=== PATIENT | male | born 1945 | race Caucasian/White ===

== ENCOUNTER 2017-09-03 15:06 | Inpatient (IN) | payer MEDICARE ==
[~2017-09-03] VITALS: Ht 177.8 cm; Wt 104.3 kg
[2017-09-03 20:01] VITALS: BP 121/89
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
[2017-09-03] MEDS ORDERED: Z GUARD REMEDY 2 OZ OINT TP PRN (20:30)
[2017-09-03] MEDS ORDERED: MAGNESIUM HYDROXIDE 30 ML UDC PO PRN (20:30)
[2017-09-03] MEDS ORDERED: MAG HYDROX/AL HYDROX/SIMETH 30 ML UDC PO PRN (20:30)
[2017-09-03] MEDS ORDERED: HYDROCODONE/APAP 5/325MG 1 EACH TABLET PO PRN (20:30)
[2017-09-03] MEDS ORDERED: ACETAMINOPHEN 325 MG TABLET PO PRN (20:30)
[2017-09-03] MEDS ORDERED: DEXTROSE 50%-WATER 50 ML DISP.SYRIN IV PRN (20:30)
[2017-09-03] MEDS ORDERED: ONDANSETRON HCL/PF 4 MG/2 ML VIAL IVP PRN (20:30)
[2017-09-03] MEDS ORDERED: ZOLPIDEM TARTRATE 5 MG TABLET PO PRN (20:30)
[2017-09-03] MEDS: BLOOD SUGAR DIAGNOSTIC 1 EACH STRIP VI SCH (21:31)
[2017-09-03] MEDS: *INSULIN REGULAR(HUMULIN R)HUM 100 UNIT/ML VIAL SQ PRN (21:39)
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
--- NOTE | 2017-09-03 21:52 | NUR ---
SPOKE WITH DR. PINTO CONCERNING BLOOD SUGAR LEVEL. NO ORDERS.
--- NOTE | 2017-09-03 23:04 | NUR ---
PT FELL ASLEEP WATCHING TV. WILL RECHECK BLOOD SUGAR AT 0200
--- NOTE | 2017-09-04 02:17 | NUR ---
PT SLEEPING. CONTINUE TO MONITOR.
--- NOTE | 2017-09-04 02:28 | NUR ---
REPEAT ACCU CHECK IS 283. CHARGE NURSE INFORMED.
[2017-09-04] MEDS ORDERED: ACET-73 PO (03:50)
[2017-09-04] MEDS ORDERED: CLON0.1T PO (03:50)
[2017-09-04] MEDS ORDERED: INSU100V11 SQ (03:50)
[2017-09-04] MEDS ORDERED: CANA300T PO (03:50)
[2017-09-04] MEDS ORDERED: RIVA10TA PO (03:50)
[2017-09-04] MEDS ORDERED: DIVA250T PO (03:50)
[2017-09-04] MEDS ORDERED: CHOL200026 PO (03:50)
[2017-09-04] MEDS ORDERED: ACET325T53 PO (03:50)
[2017-09-04] MEDS ORDERED: VITA1TAB56 PO (03:50)
[2017-09-04] MEDS ORDERED: DOCU-25 PO (03:50)
[2017-09-04] MEDS ORDERED: BISA10SU8 RC (03:50)
[2017-09-04] MEDS ORDERED: METF10002 PO (03:50)
[2017-09-04] MEDS ORDERED: INSU3INS6 SQ (03:50)
[2017-09-04] MEDS ORDERED: LEVO200T8 PO (03:50)
[2017-09-04] MEDS ORDERED: SITA100T PO (03:50)
[2017-09-04] MEDS ORDERED: OLAN5TAB3 PO (03:50)
--- NOTE | 2017-09-04 04:00 | NUR ---
PT SLEEPING. CONTINUE TO MONITOR.
[2017-09-04 05:16] VITALS: BP 106/62
--- NOTE | 2017-09-04 06:03 | NUR ---
PT RESTING COMFORTABLY. ACCU CHECK 293
[2017-09-04 06:25] LABS: BASOPHILS % (AUTO) 0.4 % (0.0-2.0); CALCIUM, SERUM 9.4 mg/dL (8.5-10.1); CARBON DIOXIDE 27 mmol/L (21-32); CHLORIDE 104 mmol/L (98-107); CREATININE 1.2 mg/dL (0.6-1.3); EOSINOPHILS # (AUTO) 0.1 /CMM (0.0-0.7); EOSINOPHILS % (AUTO) 1.3 % (0.0-6.0); GLUCOSE 280 mg/dL (74-106); HEMATOCRIT 46 % (39-51); HEMOGLOBIN 15.7 g/dL (13.5-17.5); LYMPHOCYTES % (AUTO) 25.6 % (20.0-44.0); MAGNESIUM 2.1 mg/dL (1.8-2.4); MEAN CORPUSCULAR HEMOGLOBIN 31 PG (26.0-33.0); MEAN CORPUSCULAR HGB CONC 34 g/dl (31.0-36.0); MEAN CORPUSCULAR VOLUME 91 fL (80-96); MONOCYTES # (AUTO) 0.7 /CMM (0.1-1.30); MONOCYTES % (AUTO) 9.2 % (2.0-12.0); NEUTROPHILS % (AUTO) 63.5 % (43.0-81.0); PHOSPHORUS 3.8 mg/dL (2.5-4.9); PLATELET COUNT (AUTO) 263 /CMM (150-450); POTASSIUM 4.1 mmol/L (3.5-5.1); RDW COEFFICIENT OF VARIATION 13.7 (11.5-15.0); RED BLOOD CELL COUNT(AUTO) 5.08 MIL/uL (4.5-6.0); SODIUM SERUM 139 mmol/L (136-145); UREA NITROGEN, BLOOD 17 mg/dL (7-18); WHITE BLOOD COUNT (AUTO) 7.8 K/uL (4.3-11.0)
[2017-09-04] MEDS: BLOOD SUGAR DIAGNOSTIC 1 EACH STRIP VI SCH ×4 (07:30→22:17)
[2017-09-04 08:00] VITALS: BP 118/73
[2017-09-04] MEDS: *INSULIN REGULAR(HUMULIN R)HUM 100 UNIT/ML VIAL SQ PRN ×2 (10:26→22:27)
[2017-09-04] MEDS: INSULIN REGULAR, HUMAN 100 UNIT/ML 3 ML VIAL SQ PRN ×2 (12:04→17:41)
--- NOTE | 2017-09-04 12:15 | NUR ---
DR STRANGE HERE AT BEDSIDE, NOTIFIED BS IN 409, 15 UNITS GIVEN. HALF-WAY MEDICATIONS REORDERED.
[2017-09-04] MEDS ORDERED: CLONIDINE HCL 0.1 MG TABLET PO PRN (12:30)
[2017-09-04] MEDS ORDERED: BISACODYL SUPP (10 MG) 10 MG/SUPP.RECT SUPP.RECT RC PRN (12:30)
--- NOTE | 2017-09-04 12:39 | NUR ---
PHARMACY NOTIFIED TO RESCHEDULE FUNES MEDS FOR TODAY INSTEAD OF TOMORROW.
--- NOTE | 2017-09-04 13:27 | NUR ---
BS RE-CHECKED, BS 401, WILL NOTIFY DR STRANGE. ACCORDING TO NURSING INTELLIGENCE INTERN PT MUST GO TO THE FLOOR NOW. REPORT GIVEN TO FARHAN. PT BY JACQUI TRANSFERRED TO ROOM 327-1
[2017-09-04] MEDS: CHOLECALCIFEROL 1,000 UNIT TABLET (VIT D3) PO SCH (13:48)
[2017-09-04] MEDS: OLANZAPINE 5 MG TABLET PO SCH (13:48)
[2017-09-04] MEDS: LINAGLIPTIN 5 MG TABLET PO SCH (13:48)
[2017-09-04] MEDS: METFORMIN 500 MG TABLET PO SCH (13:48)
[2017-09-04] MEDS: VITAMIN B COMP W-C 1 TAB TABLET PO SCH (13:48)
[2017-09-04] MEDS: LEVOTHYROXINE SODIUM 100 MCG TABLET PO SCH (13:48)
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
[2017-09-04 16:00] VITALS: BP 97/60
[2017-09-04] MEDS ORDERED: DEPAKOTE 125 MG PO SCH (17:00)
[2017-09-04] MEDS: DOCUSATE SODIUM 100 MG CAPSULE PO SCH (17:40)
[2017-09-04] MEDS: RIVAROXABAN 10 MG TABLET PO SCH (17:40)
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
--- NOTE | 2017-09-04 19:30 | NUR ---
RN NOTES RECEIVED PT. SLEEPING BUT AROUSABLE, A/OX3,DENIES PAIN, NO SOB, NO IV ACCESS- MD IS AWARE, CLL LIGHT WITHIN REACH, SIDERAILS UPX2, CONTINUE TO MONITOR
[2017-09-04 20:00] VITALS: BP 103/69
[2017-09-04] MEDS: DIVALPROEX SODIUM 125 MG TABLET.DR PO SCH (22:17)
[2017-09-04] MEDS: INSULIN DETEMIR 100 UNIT/ML CARTRIDGE SQ SCH (22:25)
[2017-09-05] MEDS: BLOOD SUGAR DIAGNOSTIC 1 EACH STRIP VI SCH ×4 (06:08→21:42)
[2017-09-05] MEDS: INSULIN REGULAR, HUMAN 100 UNIT/ML 3 ML VIAL SQ PRN ×2 (06:37→11:12)
--- NOTE | 2017-09-05 07:00 | NUR ---
RN NOTES AWAKE, DENIES PAIN, NO SOB, MORNING CARE RENDERED, PT. NEEDS ATTENDED
[2017-09-05] MEDS ORDERED: INVOKANA 300 MG PO SCH (07:30)
[2017-09-05] MEDS ORDERED: LEVOTHYROXINE SODIUM 100 MCG TABLET PO SCH (07:30)
[2017-09-05 08:00] VITALS: BP 101/55
[2017-09-05] MEDS: LEVOTHYROXINE SODIUM 100 MCG TABLET PO SCH (08:01)
[2017-09-05] MEDS: OLANZAPINE 5 MG TABLET PO SCH (08:47)
[2017-09-05] MEDS: DOCUSATE SODIUM 100 MG CAPSULE PO SCH ×2 (08:47→18:06)
[2017-09-05] MEDS: METFORMIN 500 MG TABLET PO SCH (08:47)
[2017-09-05] MEDS: CHOLECALCIFEROL 1,000 UNIT TABLET (VIT D3) PO SCH (08:47)
[2017-09-05] MEDS: LINAGLIPTIN 5 MG TABLET PO SCH (08:47)
[2017-09-05] MEDS: VITAMIN B COMP W-C 1 TAB TABLET PO SCH (08:47)
[2017-09-05] MEDS: DIVALPROEX SODIUM 125 MG TABLET.DR PO SCH ×2 (08:47→21:42)
[2017-09-05] MEDS ORDERED: OLANZAPINE 5 MG TABLET PO SCH (09:00)
[2017-09-05] MEDS ORDERED: CHOLECALCIFEROL 1,000 UNIT TABLET (VIT D3) PO SCH (09:00)
[2017-09-05] MEDS ORDERED: LINAGLIPTIN 5 MG TABLET PO SCH (09:00)
[2017-09-05] MEDS ORDERED: METFORMIN 500 MG TABLET PO SCH (09:00)
[2017-09-05] MEDS ORDERED: VITAMIN B COMP W-C 1 TAB TABLET PO SCH (09:00)
[2017-09-05] MEDS ORDERED: Medication Not On Formulary EA (Sitagliptin Phosphate (Januvia) 100 MG) PO SCH (09:00)
[2017-09-05 16:00] VITALS: BP 94/52
[2017-09-05] MEDS: RIVAROXABAN 10 MG TABLET PO SCH (18:06)
--- NOTE | 2017-09-05 19:30 | NUR ---
RN NOTES RECEIVED PT. AWAKE ON BED, A/OX3, NO IV ACCESS-MD AWARE, DENIES PAIN, NO SOB, CALL LIGHT WITHIN REACH, SIDERAILS UPW CONTINUE TO MONITOR
--- NOTE | 2017-09-05 19:32 | NUR ---
Handoff report to night nurse.
[2017-09-05 20:00] VITALS: BP 116/70
[2017-09-05 20:17] VITALS: BP_SYST 114; BP_SYST 116; BP_DIAS 60; BP_DIAS 70
[2017-09-05] MEDS: INSULIN DETEMIR 100 UNIT/ML CARTRIDGE SQ SCH (21:43)
[2017-09-05] MEDS: *INSULIN REGULAR(HUMULIN R)HUM 100 UNIT/ML VIAL SQ PRN (21:45)
--- NOTE | 2017-09-06 06:46 | NUR ---
RN NOTES AWAKE, DENIES PAIN, NO SOB, MORNING CARE RENDERED, CALL LIGHT WITHIN REACH, SIDERIALS UPX2 PT. NEEDS ATTENDED
[2017-09-06] MEDS: INSULIN REGULAR, HUMAN 100 UNIT/ML 3 ML VIAL SQ PRN ×3 (06:51→16:32)
[2017-09-06] MEDS: BLOOD SUGAR DIAGNOSTIC 1 EACH STRIP VI SCH ×3 (07:30→16:45)
[2017-09-06] MEDS: LEVOTHYROXINE SODIUM 100 MCG TABLET PO SCH (07:30)
[2017-09-06 08:00] VITALS: BP 104/69
[2017-09-06] MEDS: VITAMIN B COMP W-C 1 TAB TABLET PO SCH (08:48)
[2017-09-06] MEDS: METFORMIN 500 MG TABLET PO SCH (08:48)
[2017-09-06] MEDS: LINAGLIPTIN 5 MG TABLET PO SCH (08:48)
[2017-09-06] MEDS: DIVALPROEX SODIUM 125 MG TABLET.DR PO SCH (08:48)
[2017-09-06] MEDS: CHOLECALCIFEROL 1,000 UNIT TABLET (VIT D3) PO SCH (08:48)
[2017-09-06] MEDS: DOCUSATE SODIUM 100 MG CAPSULE PO SCH ×2 (08:48→16:44)
[2017-09-06] MEDS: OLANZAPINE 5 MG TABLET PO SCH (08:48)
[2017-09-06 16:00] VITALS: BP 100/69
[2017-09-06] MEDS: RIVAROXABAN 10 MG TABLET PO SCH (16:44)
--- NOTE | 2017-09-06 17:20 | NUR ---
Discharge of the stable patient via ambulance to [facility] 104. Ambulance crew members and accepting nurse given report.
== END 2017-09-06 16:45 | DRG 918 ==
LOC: ER 15:07 → EDBD 15:07 → TRANSITION 17:42 → MED 09-04 13:43
PROVIDERS: ADMIT Internal Medicine; ATTEND Internal Medicine
DX: T59.811A Toxic effect of smoke, accidental (unintentional), initial encounter (principal); E44.0 Moderate protein-calorie malnutrition; I48.91 Unspecified atrial fibrillation; R06.03 Acute respiratory distress; J70.5 Respiratory conditions due to smoke inhalation; E11.9 Type 2 diabetes mellitus without complications; E03.9 Hypothyroidism, unspecified; E66.9 Obesity, unspecified; F03.90 Unspecified dementia, unspecified severity, without behavioral disturbance, psychotic disturbance, mood disturbance, and anxiety; F31.9 Bipolar disorder, unspecified; I10 Essential (primary) hypertension; Z79.84 Long term (current) use of oral hypoglycemic drugs; Y92.129 Unspecified place in nursing home as the place of occurrence of the external cause; Z68.33 Body mass index [BMI] 33.0-33.9, adult; Z79.01 Long term (current) use of anticoagulants
CPT/HCPCS: 36415; 80048-TC; 82962-TC; 83735-TC; 84100-TC; 85025-TC; 87081-TC; A4606; J1815; J2405; Z7610

== ENCOUNTER 2019-09-07 13:33 | Inpatient (IN) | payer MEDICARE, MEDICAID ==
[~2019-09-07] VITALS: Ht 180.3 cm; Wt 77.1 kg
[~2019-09-07 13:33] MED LIST: ACET-73 PO; ACET325T53 PO; BISA10SU8 RC; CANA300T PO; CHOL200026 PO; CLON0.1T PO; DIVA250T PO; DOCU-141 PO; INSU100V11 SQ; INSU3INS6 SQ; LEVO200T8 PO; METF-442 PO; OLAN5TAB3 PO; RIVA10TA PO; SITA100T PO; VITA1TAB56 PO
--- NOTE | 2019-09-07 13:52 | NUR ---
KALINA FROM [facility] C/O GEN WEAKNESS AND UNABLE TO EAT FOR 1 WEEK. ALERT AND ORIENTED X1 WITH EPISODES OF CONFUSION. BREATHING EVEN AND UNLABORED WITH NO DISTRESS NOTED. SKIN INTACT. AWAITING TO BE SEEN BY MD.
[2019-09-07 13:54] LABS: BASOPHILS # (AUTO) 0.1 /CMM (0.0-0.2); BASOPHILS % (AUTO) 0.4 % (0.0-2.0); HEMATOCRIT 50 % (39-51); HEMOGLOBIN 15.7 g/dL (13.5-17.5); LYMPHOCYTES % (AUTO) 5.9 % (20.0-44.0); MEAN CORPUSCULAR HGB CONC 32 g/dl (31.0-36.0); MEAN CORPUSCULAR VOLUME 92 fL (80-96); MONOCYTES # (AUTO) 0.8 /CMM (0.1-1.30); MONOCYTES % (AUTO) 4.8 % (2.0-12.0); NEUTROPHILS # (AUTO) 15.2 /CMM (1.8-8.9); NEUTROPHILS % (AUTO) 88.9 % (43.0-81.0); PLATELET COUNT (AUTO) 416 /CMM (150-450); RED BLOOD CELL COUNT(AUTO) 5.39 MIL/uL (4.5-6.0); WHITE BLOOD COUNT (AUTO) 17.2 K/uL (4.3-11.0)
[2019-09-07] MEDS ORDERED: IV NS 0.9% 500 ML BAG IV ONE (14:00)
--- NOTE | 2019-09-07 14:01 | NUR ---
URINE COLLECTED SENT TO LAB
[2019-09-07 14:03] LABS: CALCIUM, SERUM 10.5 mg/dL (8.5-10.1); CARBON DIOXIDE 23 mmol/L (21-32); CHLORIDE 111 mmol/L (98-107); CREATININE 2.4 mg/dL (0.6-1.3); GLUCOSE 329 mg/dL (74-106); POTASSIUM 4.7 mmol/L (3.5-5.1); SODIUM SERUM 150 mmol/L (136-145); UREA NITROGEN, BLOOD 68 mg/dL (7-18)
[2019-09-07 14:05] LABS: APPEARANCE,URINE Slightly Cloudy (CLEAR); BILIRUBIN,URINE Negative (NEGATIVE); BLOOD, URINE Moderate Ery/uL (NEGATIVE); COLOR,URINE Yellow (YELLOW); KETONES,URINE Negative (NEGATIVE); LEUKOCYTE ESTERASE ,URINE Small (NEGATIVE); NITRITE, URINE Positive (NEGATIVE); PH,URINE 5.5 (5.0-8.0); PROTEIN,URINE 100 mg/dl (NEGATIVE); UGLUCOSE 500 MG/DL mg/dL (NEGATIVE); UROBILINOGEN,URINE 0.2 EU/dL (0.2)
--- NOTE | 2019-09-07 14:08 | NUR ---
KNOWLEDGE ENGINEER AT BEDSIDE
[2019-09-07 14:09] LABS: ALANINE AMINOTRANSFERASE 29 U/L (12-78); ALBUMIN 2.9 g/dL (3.4-5.0); ALKALINE PHOSPHATASE 110 U/L (46-116); ASPARTATE AMINOTRANSFERASE 17 U/L (15-37); BILIRUBIN,DIRECT 0.1 mg/dL (0.0-0.2); BILIRUBIN,TOTAL 0.6 mg/dL (0.2-1.0)
[2019-09-07] MEDS ORDERED: LACT1TAB25 PO (14:14)
[2019-09-07] MEDS ORDERED: PSYL283P40 PO (14:14)
[2019-09-07] MEDS ORDERED: ACET325T53 PO (14:14)
[2019-09-07 14:18] LABS: BACTERIA,URINE Moderate /HPF (None Seen); SQUAMOUS EPITHELIAL CELL,UR Few /HPF (None Seen); WBC,URINE 80-100 /HPF (0-3)
[2019-09-07] MEDS ORDERED: CRAN425C6 PO (14:18)
[2019-09-07] MEDS ORDERED: MULT-439 PO (14:18)
[2019-09-07] MEDS ORDERED: IV NS 0.9% 1,000 ML BAG IV ONE (14:30)
[2019-09-07] MEDS ORDERED: PIPERACILLIN /TAZOBACTAM 3.375 G in IV D5W 50 ML IV ONE (14:30)
[2019-09-07] MEDS ORDERED: LEVOFLOXACIN 750 MG /D5W 150ML 150 ML IV ONE (14:30)
--- NOTE | 2019-09-07 14:42 | NUR ---
[facility] PAGED
--- NOTE | 2019-09-07 15:43 | NUR ---
CALLED NURSING SUP FOR TELE BED
--- NOTE | 2019-09-07 15:50 | NUR ---
LORAINE HERRERA AT BEDSIDE FOR EVAL.
[2019-09-07 16:00] VITALS: BP 109/69
--- NOTE | 2019-09-07 16:03 | NUR ---
GOT TELE BED 106
[2019-09-07] MEDS ORDERED: BISACODYL SUPP (10 MG) 10 MG/SUPP.RECT SUPP.RECT RC PRN (16:30)
[2019-09-07] MEDS ORDERED: ACETAMINOPHEN 325 MG TABLET PO PRN (16:30)
[2019-09-07] MEDS ORDERED: Z GUARD REMEDY 2 OZ OINT TP PRN (16:30)
[2019-09-07] MEDS ORDERED: MAGNESIUM HYDROXIDE 30 ML UDC PO PRN (16:30)
[2019-09-07] MEDS ORDERED: ONDANSETRON HCL/PF 4 MG/2 ML VIAL IVP PRN (16:30)
[2019-09-07] MEDS ORDERED: MAG HYDROX/AL HYDROX/SIMETH 30 ML UDC PO PRN (16:30)
[2019-09-07] MEDS ORDERED: ZOLPIDEM TARTRATE 5 MG TABLET PO PRN (16:30)
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
--- NOTE | 2019-09-07 16:44 | NUR ---
REPORT GIVEN TO ESSIE
[2019-09-07] MEDS ORDERED: INSULIN REGULAR, HUMAN 100 UNIT/ML 3 ML VIAL SQ PRN (17:00)
[2019-09-07] MEDS ORDERED: DEXTROSE 50%-WATER 50 ML DISP.SYRIN IV PRN (17:00)
[2019-09-07] MEDS: CHOLECALCIFEROL 1,000 UNIT TABLET (VIT D3) PO SCH (18:22)
[2019-09-07] MEDS: DOCUSATE SODIUM 100 MG CAPSULE PO SCH (18:22)
[2019-09-07] MEDS: LACTOBACILLUS RHAMNOSUS GG 1 EACH CAP.SPRINK PO SCH (18:22)
[2019-09-07] MEDS: RIVAROXABAN 15 MG TABLET PO SCH (18:24)
[2019-09-07] MEDS: BLOOD SUGAR DIAGNOSTIC 1 EACH STRIP IN SCH ×2 (18:28→22:56)
[2019-09-07] MEDS: IV 1/2NS 1000 ML 1,000 ML IV PRN (19:05)
--- NOTE | 2019-09-07 19:14 | NUR ---
PT AWAKE, ALERT, ABLE TO FOLLOW COMMANDS, OPENS EYES SPONTANEOUSLY TO SPEECH AND TOUCH, NON VERBAL MOST OF THE TIME- SOMETIMES ABLE TO ANSWER YES OR NO QUESTIONS. ON ROOM AIR, SATURATING WELL, RESPIRATIONS EVEN AND UNLABORED, NO SIGNS OF RESPIRATORY DISTRESS NOTED. IV SITE ON LEFT AC G20 INTACT, PATENT, 0.45% NS INFUSING AT 100CC/HR, NO SIGNS OF INFILTRATION NOTED. BED IN LOW POSITION, LOCKED, CALL LIGHT WITHIN REACH. WILL ENDORSE TO NOC SHIFT NURSE.
--- NOTE | 2019-09-07 19:30 | NUR ---
CUSHION COVER INSPECTOR OPENING NOTE RECEIVED PATIENT IN BED. PATIENT IS NOVERBAL BUT ALERT. TOLERATING ROOM AIR. RESPIRATIONS ARE EVEN AND UNLABORED. NO S/S SOB NOTED. NO MANIFESTATION OF PAIN. EXTERNAL TELE MONITOR READS SR - ST HR IN 90S. IN NO APPARENT DISTRESS. IV ACCESS IN LAC RUNNING 1/2NS@100ML/HR. BED IS LOW AND LOCKED, HOB ELEVATED SEMI FOWLERS, SIDE RIALS UP X2, BED ALARM ON. CALL LIGHT WITHIN REACH WILL CONTINUE TO MONITOR
[2019-09-07 20:00] VITALS: BP 119/77
[2019-09-07] MEDS: INSULIN GLARGINE, 100 UNIT/ML CARTRIDGE SQ SCH (22:00)
[2019-09-07] MEDS: DIVALPROEX SODIUM 125 MG TABLET.DR PO SCH (22:40)
[2019-09-07] MEDS ORDERED: PIPERACILLIN /TAZOBACTAM 3.375 G in IV D5W 50 ML IV SCH (23:00)
[2019-09-07] MEDS: PIPERACILLIN /TAZOBACTAM 3.375 G in IV D5W 100 ML IV SCH (23:40)
[2019-09-08] VITALS: BP 117/77
[2019-09-08] MEDS ORDERED: DEXTROSE 50%-WATER 50 ML DISP.SYRIN IV PRN
[2019-09-08] MEDS: BLOOD SUGAR DIAGNOSTIC 1 EACH STRIP IN SCH ×6 (00:51→20:54)
[2019-09-08] MEDS: INSULIN REGULAR, HUMAN 100 UNIT/ML 3 ML VIAL SQ PRN ×6 (00:56→20:57)
[2019-09-08 01:38] VITALS: BP 117/77
[2019-09-08 04:00] VITALS: BP 115/73
[2019-09-08 06:15] LABS: BASOPHILS # (AUTO) 0.1 /CMM (0.0-0.2); BASOPHILS % (AUTO) 0.5 % (0.0-2.0); EOSINOPHILS % (AUTO) 0.5 % (0.0-6.0); HEMATOCRIT 43 % (39-51); HEMOGLOBIN 13.7 g/dL (13.5-17.5); LYMPHOCYTES # (AUTO) 1.3 /CMM (0.8-4.8); LYMPHOCYTES % (AUTO) 8.6 % (20.0-44.0); MEAN CORPUSCULAR HGB CONC 32 g/dl (31.0-36.0); MEAN CORPUSCULAR VOLUME 91 fL (80-96); MONOCYTES # (AUTO) 1.1 /CMM (0.1-1.30); MONOCYTES % (AUTO) 7.6 % (2.0-12.0); NEUTROPHILS # (AUTO) 12.4 /CMM (1.8-8.9); NEUTROPHILS % (AUTO) 82.8 % (43.0-81.0); PLATELET COUNT (AUTO) 336 /CMM (150-450)
[2019-09-08 06:42] LABS: ALANINE AMINOTRANSFERASE 19 U/L (12-78); ALBUMIN 2.3 g/dL (3.4-5.0); ALKALINE PHOSPHATASE 91 U/L (46-116); ASPARTATE AMINOTRANSFERASE 13 U/L (15-37); BILIRUBIN,DIRECT 0.1 mg/dL (0.0-0.2); BILIRUBIN,TOTAL 0.6 mg/dL (0.2-1.0); CALCIUM, SERUM 9.4 mg/dL (8.5-10.1); CARBON DIOXIDE 21 mmol/L (21-32); CHLORIDE 118 mmol/L (98-107); CREATININE 1.9 mg/dL (0.6-1.3); GLUCOSE 232 mg/dL (74-106); MAGNESIUM 2.6 mg/dL (1.8-2.4); PHOSPHORUS 3.7 mg/dL (2.5-4.9); POTASSIUM 3.9 mmol/L (3.5-5.1); SODIUM SERUM 155 mmol/L (136-145); TOTAL PROTEIN, SERUM 7.6 g/dL (6.4-8.2); UREA NITROGEN, BLOOD 62 mg/dL (7-18)
[2019-09-08 06:54] LABS: CHOLESTEROL 101 mg/dL (<200); HDL CHOLESTEROL 26 mg/dL (40-60); LDL 62 mg/dL (0-99); THYROID STIMULATING HORMONE 0.335 uIU/mL (0.358-3.74); TRIGLYCERIDES 88 mg/dL (30-150)
--- NOTE | 2019-09-08 07:00 | NUR ---
FLORIST CLOSING NOTE NO SIGNIFICANT CHANGES THROUGHOUT SHIFT. WILL ENDORSE TO NEXT SHIFT.
[2019-09-08] MEDS: PIPERACILLIN /TAZOBACTAM 3.375 G in IV D5W 100 ML IV SCH ×3 (07:12→23:58)
--- NOTE | 2019-09-08 07:25 | NUR ---
CONSULTING NURSE OPENING NOTE RECEIVED REPORT FROM PM NURSE.PATIENT IN BED. AXOX1.ABLE TO TELL NAME AND ANSWER SIMPLE QUESTIONS. ON ROOM AIR. RESPIRATIONS ARE EVEN AND UNLABORED. NO S/S SOB NOTED. NO C/O PAIN. ON TELE MONITOR SR HR 89. IN NO APPARENT DISTRESS. IV ACCESS IN LAC RUNNING 1/2NS@100ML/HR. BED IS LOW AND LOCKED POSITION. HOB ELEVATED SEMI FOWLERS POSITION.SIDE RIALS UP X3. BED ALARM ON. CALL LIGHT WITHIN REACH WILL CONTINUE TO MONITOR
[2019-09-08 08:00] VITALS: BP 109/27
[2019-09-08] MEDS: LACTOBACILLUS RHAMNOSUS GG 1 EACH CAP.SPRINK PO SCH (08:37)
[2019-09-08] MEDS: LEVOTHYROXINE SODIUM 125 MCG TABLET PO SCH (08:37)
[2019-09-08] MEDS: OLANZAPINE 5 MG TABLET PO SCH (08:37)
[2019-09-08] MEDS: MULTIVIT W/MINERALS 1 TAB TABLET PO SCH (08:37)
[2019-09-08] MEDS: VIT B CMPLX 3/FA/VIT C/BIOTIN 1 TAB TABLET PO SCH (08:37)
[2019-09-08] MEDS: CHOLECALCIFEROL 1,000 UNIT TABLET (VIT D3) PO SCH (08:37)
[2019-09-08] MEDS: DOCUSATE SODIUM 100 MG CAPSULE PO SCH ×2 (08:37→16:43)
[2019-09-08] MEDS: PSYLLIUM SEED 1 PKT PACKET PO SCH ×2 (08:37→16:44)
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
[2019-09-08] MEDS ORDERED: CRANBERRY EXTRACT 650 MG PO SCH (09:00)
--- NOTE | 2019-09-08 11:00 | NUR ---
MS RN NOTE SEEN BY SPEECH THERAPIST.GOT NEW ORDERS.WILL CONTINUE TO MONITOR.
--- NOTE | 2019-09-08 12:00 | NUR ---
RN NOTES RECEIVED TRANSFER REPORT FROM [facility] [address] FOR CONTINUITY OF CARE.
--- NOTE | 2019-09-08 12:12 | NUR ---
RN NOTE ENDORSED TO DARRON MARTINEZ FOR ALAN.PLACED CONDOM CATH FOR WOUND CARE.
[2019-09-08 15:37] LABS: CREATININE, URINE 51.6 MG/DL (30.0-125.0); URINE TOTAL PROTEIN 39.2 mg/dL (0-11.9)
[2019-09-08 16:00] VITALS: BP 125/79
[2019-09-08 16:06] LABS: APPEARANCE,URINE SL CLOUDY (CLEAR); BILIRUBIN,URINE NEGATIVE (NEGATIVE); BLOOD, URINE MODERATE Ery/uL (NEGATIVE); COLOR,URINE YELLOW (YELLOW); KETONES,URINE NEGATIVE (NEGATIVE); LEUKOCYTE ESTERASE ,URINE SMALL (NEGATIVE); NITRITE, URINE NEGATIVE (NEGATIVE); PH,URINE 5.5 (5.0-8.0); PROTEIN,URINE NEGATIVE (NEGATIVE); UGLUCOSE >=1000 mg/dL (NEGATIVE); UROBILINOGEN,URINE 0.2 EU/dL (0.2)
[2019-09-08 16:12] LABS: BACTERIA,URINE 1+ /HPF (None Seen); SQUAMOUS EPITHELIAL CELL,UR Few /HPF (None Seen); WBC,URINE TOO NUMEROUS TO COUN /HPF (0-3)
[2019-09-08] MEDS: RIVAROXABAN 15 MG TABLET PO SCH (16:44)
[2019-09-08 16:57] LABS: EOSINOPHIL,URINE Rare
[2019-09-08] MEDS: CLOTRIMAZOLE 1% 15 GM TUBE TP SCH (17:09)
[2019-09-08] MEDS: CLOTRIMAZOLE/BETAMETASONE DIPROPIONATE 15 GM TUBE TP SCH (17:09)
--- NOTE | 2019-09-08 19:31 | NUR ---
RN CLOSING NOTES PATIENT IS RESTING IN BED COMFORTABLY AT THIS TIME, DENIES ANY DISTRESS, PAIN, OR SOB. PT WAS SEEN BY THE WOUND CARE TEAM TODAY. PT NEEDS HAVE BEEN MET, VITAL SIGNS ARE STABLE, NO ACUTE CHANGES OCCURRED THROUGHOUT THE SHIFT. SAFETY MEASURES HAVE BEEN IMPLEMENTED, CALL LIGHT IS WITHIN REACH, BED IS IN LOWEST AND LOCKED POSITION, SIDE RAILS UP X2, PT HAS BEEN ENDORSED TO NIGHTSHIFT RN FOR CONTINUITY OF CARE.
--- NOTE | 2019-09-08 19:35 | NUR ---
RN NOTES, PATIENT SLEEPING AT THIS TIME BUT EASILY AROUSES TO TACTILE STIMULI, AT RA BREATHING EVEN AND UNLABORED, NO SOB/ACUTE DISTRESS NOTED AT THIS TIME, DENIES ANY PAIN OR DISCOMFORT, DENIES ANY DISTRESS, ALL SAFETY MEASURES IN PLACED, LEFT AC IV ACCESS IN PLACED, PATENT AND INTACT, AND IVF INFUSING ORDERED, PATIENT TOLERATED WELL, CALL LIGHT IS WITHIN REACH, BED IS IN LOWEST AND LOCKED POSITION, SIDE RAILS UP X2,WILL CONTINUE TO MONITOR CLOSELY.
[2019-09-08 20:00] VITALS: BP_SYST 109; BP_SYST 128; BP_DIAS 68; BP_DIAS 70
[2019-09-08] MEDS: INSULIN GLARGINE, 100 UNIT/ML CARTRIDGE SQ SCH (21:09)
[2019-09-08] MEDS: DIVALPROEX SODIUM 125 MG TABLET.DR PO SCH (21:09)
[2019-09-09] MEDS: IV 1/2NS 1000 ML 1,000 ML IV PRN (00:04)
[2019-09-09] MEDS: INSULIN REGULAR, HUMAN 100 UNIT/ML 3 ML VIAL SQ PRN ×6 (00:56→21:47)
[2019-09-09] MEDS: BLOOD SUGAR DIAGNOSTIC 1 EACH STRIP IN SCH ×6 (00:56→21:44)
[2019-09-09 04:00] VITALS: BP 112/72
[2019-09-09 06:34] LABS: BASOPHILS # (AUTO) 0.1 /CMM (0.0-0.2); BASOPHILS % (AUTO) 1.1 % (0.0-2.0); EOSINOPHILS % (AUTO) 2.7 % (0.0-6.0); HEMATOCRIT 41 % (39-51); LYMPHOCYTES # (AUTO) 1.7 /CMM (0.8-4.8); LYMPHOCYTES % (AUTO) 12.6 % (20.0-44.0); MEAN CORPUSCULAR HGB CONC 32 g/dl (31.0-36.0); MEAN CORPUSCULAR VOLUME 92 fL (80-96); MONOCYTES # (AUTO) 1.2 /CMM (0.1-1.30); MONOCYTES % (AUTO) 8.4 % (2.0-12.0); NEUTROPHILS # (AUTO) 10.4 /CMM (1.8-8.9); NEUTROPHILS % (AUTO) 75.2 % (43.0-81.0); PLATELET COUNT (AUTO) 338 /CMM (150-450); RED BLOOD CELL COUNT(AUTO) 4.44 MIL/uL (4.5-6.0); WHITE BLOOD COUNT (AUTO) 13.8 K/uL (4.3-11.0)
[2019-09-09 06:40] LABS: ALANINE AMINOTRANSFERASE 18 U/L (12-78); ALBUMIN 2.3 g/dL (3.4-5.0); ALKALINE PHOSPHATASE 86 U/L (46-116); ASPARTATE AMINOTRANSFERASE 6 U/L (15-37); BILIRUBIN,TOTAL 0.3 mg/dL (0.2-1.0); CALCIUM, SERUM 9.3 mg/dL (8.5-10.1); CARBON DIOXIDE 27 mmol/L (21-32); CHLORIDE 123 mmol/L (98-107); CREATININE 1.9 mg/dL (0.6-1.3); GLUCOSE 85 mg/dL (74-106); MAGNESIUM 2.7 mg/dL (1.8-2.4); PHOSPHORUS 3.4 mg/dL (2.5-4.9); POTASSIUM 3.5 mmol/L (3.5-5.1); TOTAL PROTEIN, SERUM 7.4 g/dL (6.4-8.2); UREA NITROGEN, BLOOD 50 mg/dL (7-18)
[2019-09-09 06:47] LABS: CREATINE KINASE, TOTAL 12 U/L (39-308); THYROID STIMULATING HORMONE 0.404 uIU/mL (0.358-3.74)
--- NOTE | 2019-09-09 06:53 | NUR ---
RN NOTES, PATIENT AWAKE AT THIS TIME, ON RA BREATHING EVEN AND UNLABORED, NO S/S OF SOB/ACUTE DISTRESS NOTED AT THIS TIME, NO SIGNIFICANT CHANGE IN CONDITION DURING THE NIGHT, ALL NEEDS PROVIDED, AND MEDS ADMINISTERED ORDERED, BED LOCKED AND IN LOWEST POSITION, CALL LIGHT WITHIN REACH, DRY AND CLEAN AND WELL REPOSITIONED, WILL ENDORSE CONTINUITY OF CARE TO ONCOMING NURSE.
[2019-09-09 07:42] LABS: SODIUM SERUM 158 mmol/L (136-145)
[2019-09-09] MEDS: PIPERACILLIN /TAZOBACTAM 3.375 G in IV D5W 100 ML IV SCH ×2 (07:47→14:46)
[2019-09-09] MEDS: LEVOTHYROXINE SODIUM 125 MCG TABLET PO SCH (07:48)
[2019-09-09 08:00] VITALS: BP 120/60
--- NOTE | 2019-09-09 08:05 | NUR ---
MS RN OPENING NOTE PATIENT IN BED RESTING COMFORTABLY. PATIENT IN NO ACUTE DISTRESS. NO SOB NOTED. PATIENT BREATHING IS EVEN AND UNLABORED. NO FACIAL GRIMACING NOTED. IV INTACT. PATIENT HOB IS ELEVATED. PATIENT BED IS LOCKED AND IN LOWEST POSITION. CALL LIGHT WITHIN REACH. WILL CONTINUE TO MONITOR.
--- NOTE | 2019-09-09 08:20 | NUR ---
MS RN NOTE NOTIFIED DYLLAN PLEITEZ OF [facility] LAB VALUE OF SODIUM 158. PER DYLLAN TO CHANGE IV FLUIDS TO D5W. WILL CONTINUE TO MONITOR.
[2019-09-09] MEDS: CLOTRIMAZOLE/BETAMETASONE DIPROPIONATE 15 GM TUBE TP SCH ×2 (09:20→16:38)
[2019-09-09] MEDS: OLANZAPINE 5 MG TABLET PO SCH (09:21)
[2019-09-09] MEDS: PSYLLIUM SEED 1 PKT PACKET PO SCH ×2 (09:21→16:36)
[2019-09-09] MEDS: VIT B CMPLX 3/FA/VIT C/BIOTIN 1 TAB TABLET PO SCH (09:21)
[2019-09-09] MEDS: CHOLECALCIFEROL 1,000 UNIT TABLET (VIT D3) PO SCH (09:21)
[2019-09-09] MEDS: CLOTRIMAZOLE 1% 15 GM TUBE TP SCH ×2 (09:21→16:38)
[2019-09-09] MEDS: DOCUSATE SODIUM 100 MG CAPSULE PO SCH ×2 (09:22→16:36)
[2019-09-09] MEDS: LACTOBACILLUS RHAMNOSUS GG 1 EACH CAP.SPRINK PO SCH (09:22)
[2019-09-09] MEDS: MULTIVIT W/MINERALS 1 TAB TABLET PO SCH (09:22)
[2019-09-09 12:00] VITALS: BP 115/64
--- NOTE | 2019-09-09 12:40 | NUR ---
MS RN NOTE CALL FROM LAB REPORTING GRAM POSITIVE COCCI. WILL CONTINUE TO MONITOR.
[2019-09-09] MEDS: IV D5W 1,000 ML IV PRN (14:44)
[2019-09-09 16:00] VITALS: BP 101/65
[2019-09-09] MEDS: RIVAROXABAN 15 MG TABLET PO SCH (16:36)
[2019-09-09] MEDS ORDERED: FEE PK DOSING 1 MIN EA MC ONE (19:12)
--- NOTE | 2019-09-09 19:16 | NUR ---
MS RN CLOSING NOTE PATIENT IN BED RESTING COMFORTABLE. PATIENT IN NO ACUTE DISTRESS. NO SOB NOTED. PATIENT BREATHING IS EVEN AND UNLABORED. PATIENT KEPT CLEAN, DRY, AND COMFORTABLE THROUGHOUT SHIFT. PATIENT TURNED AND REPOSITIONED Q2H. EXTREMITIES OFFLOADED ON PILLOWS. PATIENT BED IS LOCKED AND IN LOWEST POSITION. CALL LIGHT WITHIN REACH. HOB IS ELEVATED. SAFETY PRECAUTIONS IN PLACE. BED ALARM IS ON. WILL ENDORSE CARE TO PM SHIFT FOR ALAN.
--- NOTE | 2019-09-09 19:30 | NUR ---
RN NOTES, PATIENT SLEEPING AT THIS TIME BUT EASILY AROUSES TO TACTILE STIMULI, AT RA BREATHING EVEN AND UNLABORED, NO SOB/ACUTE DISTRESS NOTED AT THIS TIME, NO FACIAL GRIMACING OR S/S OF ANY PAIN OR DISCOMFORT AT THIS TIME, ALL SAFETY MEASURES IN PLACED, LEFT AC IV ACCESS IN PLACED, PATENT AND INTACT, AND IVF INFUSING ORDERED, PATIENT TOLERATED WELL, CALL LIGHT W/I REACH, BED LOCKED AND LOWEST POSITION, SIDE RAILS UP X2, WILL CONTINUE TO MONITOR CLOSELY.
[2019-09-09 20:00] VITALS: BP 110/67
[2019-09-09] MEDS ORDERED: VANCOMYCIN 1 GM in IV D5W 250 ML IV ONE (20:00)
[2019-09-09] MEDS: CEPHALEXIN MONOHYDRATE 250 MG CAPSULE PO SCH (21:19)
[2019-09-09] MEDS: DIVALPROEX SODIUM 125 MG TABLET.DR PO SCH (21:19)
[2019-09-09] MEDS: INSULIN GLARGINE, 100 UNIT/ML CARTRIDGE SQ SCH (21:48)
[2019-09-10] MEDS: BLOOD SUGAR DIAGNOSTIC 1 EACH STRIP IN SCH ×4 (01:01→12:26)
[2019-09-10] MEDS: INSULIN REGULAR, HUMAN 100 UNIT/ML 3 ML VIAL SQ PRN ×3 (01:03→12:29)
[2019-09-10 04:00] VITALS: BP 95/57
[2019-09-10 06:19] LABS: BASOPHILS # (AUTO) 0.1 /CMM (0.0-0.2); EOSINOPHILS % (AUTO) 3.6 % (0.0-6.0); HEMATOCRIT 40 % (39-51); HEMOGLOBIN 12.5 g/dL (13.5-17.5); LYMPHOCYTES # (AUTO) 1.1 /CMM (0.8-4.8); LYMPHOCYTES % (AUTO) 9.9 % (20.0-44.0); MEAN CORPUSCULAR HGB CONC 32 g/dl (31.0-36.0); MEAN CORPUSCULAR VOLUME 91 fL (80-96); MONOCYTES # (AUTO) 0.5 /CMM (0.1-1.30); NEUTROPHILS # (AUTO) 8.8 /CMM (1.8-8.9); NEUTROPHILS % (AUTO) 80.5 % (43.0-81.0); PLATELET COUNT (AUTO) 323 /CMM (150-450); RED BLOOD CELL COUNT(AUTO) 4.33 MIL/uL (4.5-6.0)
--- NOTE | 2019-09-10 07:00 | NUR ---
RN NOTES, PATIENT AWAKE AT THIS TIME, ON RA BREATHING EVEN AND UNLABORED, NO S/S OF SOB/ACUTE DISTRESS NOTED AT THIS TIME, NO SIGNIFICANT CHANGE IN CONDITION DURING THE NIGHT, ALL NEEDS PROVIDED, BED LOCKED AND IN LOWEST POSITION, CALL LIGHT WITHIN REACH, WILL ENDORSE CONTINUITY OF CARE TO ONCOMING NURSE.
[2019-09-10 07:08] LABS: CALCIUM, SERUM 8.9 mg/dL (8.5-10.1); CARBON DIOXIDE 26 mmol/L (21-32); CHLORIDE 120 mmol/L (98-107); CREATININE 1.5 mg/dL (0.6-1.3); GLUCOSE 131 mg/dL (74-106); POTASSIUM 3.4 mmol/L (3.5-5.1); SODIUM SERUM 155 mmol/L (136-145); UREA NITROGEN, BLOOD 35 mg/dL (7-18)
--- NOTE | 2019-09-10 07:26 | NUR ---
MS RN OPENING NOTE RECEIVED REPORT FROM [facility] SHIFT NURSE. PT AWAKE IN BED, ALERT, NON VERBAL, ABLE TO FOLLOW COMMANDS, EYES OPEN SPONTANEOUSLY TO VERBAL AND PAINFUL STIMULI. ON ROOM AIR, SATURATING WELL, RESPIRATIONS EVEN AND UNLABORED, NO SIGNS OF RESPIRATORY DISTRESS NOTED. IV SITE ON LEFT AC G20 INTACT, PATENT, INFUSING D5W AT 100CC/HR, NO SIGNS OF INFILTRATION NOTED. CONDOM CATH INTACT, DRAINING CLOUDY YELLOW URINE. BED IN LOW POSITION, LOCKED, CALL LIGHT WITHIN REACH.
[2019-09-10] MEDS: LEVOTHYROXINE SODIUM 125 MCG TABLET PO SCH (07:40)
[2019-09-10 08:00] VITALS: BP 120/68
[2019-09-10 08:06] LABS: T3, FREE 1.1 pg/mL (2.0-4.4)
[2019-09-10] MEDS: CHOLECALCIFEROL 1,000 UNIT TABLET (VIT D3) PO SCH (08:24)
[2019-09-10] MEDS: PSYLLIUM SEED 1 PKT PACKET PO SCH (08:24)
[2019-09-10] MEDS: LACTOBACILLUS RHAMNOSUS GG 1 EACH CAP.SPRINK PO SCH (08:25)
[2019-09-10] MEDS: MULTIVIT W/MINERALS 1 TAB TABLET PO SCH (08:25)
[2019-09-10] MEDS: OLANZAPINE 5 MG TABLET PO SCH (08:25)
[2019-09-10] MEDS: DOCUSATE SODIUM 100 MG CAPSULE PO SCH (08:25)
[2019-09-10] MEDS: CEPHALEXIN MONOHYDRATE 250 MG CAPSULE PO SCH (08:25)
[2019-09-10] MEDS: VIT B CMPLX 3/FA/VIT C/BIOTIN 1 TAB TABLET PO SCH (08:25)
[2019-09-10] MEDS: CLOTRIMAZOLE/BETAMETASONE DIPROPIONATE 15 GM TUBE TP SCH (08:26)
[2019-09-10] MEDS: CLOTRIMAZOLE 1% 15 GM TUBE TP SCH (08:26)
[2019-09-10 09:07] LABS: *SPE A/G RATIO 0.7 (0.7-1.7); *SPE ALBUMIN 2.6 g/dL (2.9-4.4); *SPE ALPHA-1-GLOBULIN 0.4 g/dL (0.0-0.4); *SPE ALPHA-2-GLOBULIN 1.1 g/dL (0.4-1.0); *SPE BETA GLOBULIN 1.2 g/dL (0.7-1.3); *SPE M-SPIKE Not Observed g/dL (Not Observed); *SPEGAMMA GLOBULIN 1.3 g/dL (0.4-1.8)
[2019-09-10] MEDS ORDERED: POTASSIUM CHLORIDE 10 MEQ TABLET.SA PO ONE (10:00)
[2019-09-10 11:06] LABS: PTH, INTACT 25 pg/mL (15-65)
[2019-09-10 12:00] VITALS: BP 116/70
[2019-09-10] MEDS: IV D5W 1,000 ML IV PRN (13:29)
[2019-09-10] MEDS ORDERED: VANCOMYCIN 0.75 GM in IV D5W 250 ML IV SCH (14:00)
[2019-09-10] MEDS ORDERED: VANCOMYCIN 1 GM in IV D5W 250 ML IV SCH (14:00)
--- NOTE | 2019-09-10 15:00 | NUR ---
CALLED CRISTINA, GAVE REPORT TO MICHELLE
[2019-09-10] MEDS ORDERED: INFLUENZA VACCINE 2019-20 0.5 ML DISP.SYRIN IM ONE (15:30)
--- NOTE | 2019-09-10 15:57 | NUR ---
ALL DISCHARGE PAPERWORK PRINTED, GIVEN TO ALEKSANDRA WILLANZ, IV REMOVED, CONDOM CATHETER REMOVED, ALL DISCHARGE PHOTOS TAKEN.
--- NOTE | 2019-09-10 16:17 | NUR ---
PT LEFT UNIT IN STABLE CONDITION VIA GURNEY ACCOMPANIED BY [facility] EMT.
== END 2019-09-10 16:16 | DRG 871 ==
LOC: ER 13:38 → TELE1 16:09 → MEDSG1 09-08 13:42
PROVIDERS: ADMIT Nurse Practitioner Acute Care; ATTEND Nurse Practitioner Acute Care
DX: A41.9 Sepsis, unspecified organism (principal); N17.0 Acute kidney failure with tubular necrosis; G93.41 Metabolic encephalopathy; J18.9 Pneumonia, unspecified organism; E44.0 Moderate protein-calorie malnutrition; N39.0 Urinary tract infection, site not specified; E87.0 Hyperosmolality and hypernatremia; E87.2 Acidosis; D68.59 Other primary thrombophilia; L97.419 Non-pressure chronic ulcer of right heel and midfoot with unspecified severity; L97.429 Non-pressure chronic ulcer of left heel and midfoot with unspecified severity; E03.9 Hypothyroidism, unspecified; I10 Essential (primary) hypertension; R65.20 Severe sepsis without septic shock; E83.52 Hypercalcemia; L30.4 Erythema intertrigo; F03.90 Unspecified dementia, unspecified severity, without behavioral disturbance, psychotic disturbance, mood disturbance, and anxiety; M20.42 Other hammer toe(s) (acquired), left foot; M20.41 Other hammer toe(s) (acquired), right foot; E86.1 Hypovolemia; Z79.4 Long term (current) use of insulin; I48.91 Unspecified atrial fibrillation; E88.09 Other disorders of plasma-protein metabolism, not elsewhere classified; Z68.23 Body mass index [BMI] 23.0-23.9, adult; B96.1 Klebsiella pneumoniae [K. pneumoniae] as the cause of diseases classified elsewhere; B35.3 Tinea pedis; M62.562 Muscle wasting and atrophy, not elsewhere classified, left lower leg; M62.561 Muscle wasting and atrophy, not elsewhere classified, right lower leg; E11.621 Type 2 diabetes mellitus with foot ulcer; Z79.84 Long term (current) use of oral hypoglycemic drugs; L98.8 Other specified disorders of the skin and subcutaneous tissue; Z79.01 Long term (current) use of anticoagulants; F31.9 Bipolar disorder, unspecified; F20.9 Schizophrenia, unspecified
CPT/HCPCS: 36415; 71045-TC; 76770-TC; 80048-TC; 80053-TC; 80061-TC; 80076-TC; 81000-TC; 82550-TC; 82570-TC; 82962-TC; 83605-TC; 83735-TC; 83935-TC; 83970; 84100-TC; 84155; 84155-TC; 84165; 84300-TC; 84439-TC; 84443-TC; 84481; 84484-TC; 85025-TC; 85730-TC; 87040-TC; 87081-TC; 87086-TC; 87186-TC; 92526; 92611-TC; 97110-TC; 97116-TC; 97530-TC; A4349; G0378; J1815; J1956; J2543; J3370; J3490; J7030; J7040; J7060; J7070; Q2036